=== PATIENT | female | born 1960 | race Caucasian/White ===

== ENCOUNTER → 2020-01-02 | Emergency (ER) | payer SELFPAY ==
[~2020-01-02] MED LIST: AMIODARONE HCL (50 MG/ ML) 3 ML VIAL IV ONE; CALCIUM CHLOR(10%) 100MG/ML 10ML SYRINGE IV ONE; EPINEPHrine HCL 1 MG/10 ML SYRG IV ONE; FUROSEMIDE 40 MG/4 ML VIAL ONE; SODIUM BICARBONATE 8.4% INJ 50ML SYRINGE IV ONE; methylPREDNISolone SOD SUCC 125 MG/2 ML VL ONE
[2020-01-02 10:41] VITALS: BP 0/0
== END | disposition expired ==
LOC: ER 10:41 → EDBD 10:41
DX: I46.9 Cardiac arrest, cause unspecified (principal); I50.9 Heart failure, unspecified; E78.5 Hyperlipidemia, unspecified; E07.9 Disorder of thyroid, unspecified
CPT/HCPCS: 31500; 82962; 92950; 99291; J0171; J0282; J1940; J2930